=== PATIENT | male | born 1995 | race Caucasian/White ===

== ENCOUNTER 2021-10-14 20:27 | Emergency (ER) | payer OTHER, SELFPAY ==
[2021-10-14 20:33] VITALS: BP 153/98; PULSE 90; RESP 18; O2SAT 98
--- NOTE | 2021-10-14 20:58 | ED.GENADUL_ITS ---
Discharge Plan Disposition Patient Disposition: HOME Condition: Stable Discharge Details Clinical Impression: Avulsion fracture of right talus Primary Care Provider: None,None ED Provider: Gianluca Espinal Home Meds and New Rx's Prescriptions: Continued amoxicillin-pot clavulanate 875-125 mg tablet 1 tab PO BID Qty: 10 0RF Discharge Instructions Instructions: Talar Fracture in Adults (ED) Additional Instructions: X-rays concerning for a small talar fracture. Wear postop shoe and use crutches until reevaluation with orthopedics. Rest, elevate, cool compresses every 2 h ours for 20 minutes. I have placed you on the orthopedic list, please contact their office first thing Sunday to discuss your ER visit and need for outpatient reevaluation. [id number] anti-inflammatory medication such as Motrin as directed. Please watch for new or worsening symptoms and return to the ER for any concerns. Referrals: Alex Barber MD [ [facility] STAFF PHYSICIAN] - Medical Decision Making 25-year-old gentleman was skateboarding a few hours ago and twisted his right ankle. Plan is to obtain x-ray and reassess Upon reassessment patient reports pain is increasing, will provide 1 tablet p.o. Percocet now and a take-home pack. X-ray reveals a potential small talar avulsion fracture. Patient does state that he did injure his ankle previously but was never told he had a fracture. He is certainly tender in this region. Difficult to tell whether this is acute or not. We will treat as an acute fracture. Placed into a tall walking boot with crutches and teaching. Placed on the orthopedic list to help expedite outpatient follow-up Standard discharge and return precautions were provided. Patient understands, is agreeable to this plan, and has no additional questions or concerns upon discharge. This documentation was generated using [employer] system, please disregard any oddities of phrase or misspellings. Medical Records Medical records reviewed: Yes I reviewed the patient's medical records. Imaging Data Radiologic Study: Attestation: I personally reviewed and interpreted this imaging study as follows: Imaging: X-Ray Radiologist's impression: PROCEDURE INFORMATION: Exam: XR Right Ankle Exam date and time: 10/14/2021 20:58 Age: 25 years old Clinical indication: Injury or trauma; Other: Twisting injury; Sprain or strain; Ankle; Right; Injury date: 10/14/21 TECHNIQUE: Imaging protocol: Radiologic exam of the Right ankle. Views: 3 or more views. COMPARISON: No relevant prior studies available. FINDINGS: Bones/joints: The ankle mortise is intact. No acute fracture involving tibia or fibula. Soft tissues: Soft tissue swelling in the lateral ankle. Other findings: 6 mm curvilinear calcification projecting dorsal to the talar neck, relatively coarse in appearance. IMPRESSION: No displaced fracture. Potential small talar avulsion fracture, age indeterminate. Consider follow-up if this is the location of the patient's pain. HPI General Mode of arrival: ambulatory . Date/Time Provider Initiated Documentation: 10/14/21 20:39 . Limitations to Documentation: no limitations . Information obtained by: patient . History of Present Illness 25 year old M presents to the emergency department with the chief complaint of R ankle injury, described as moderate, with intensity rated at 7. Quality is described as aching, and is localized to the right and lower extremity. Patient reports no radiation. Patient started experiencing this hour(s) (3) and it has been constant. Immobilization improves symptom(s), Movement worsens symptoms . Patient notes no other symptoms.. Patient did receive the following treatm ents prior to arrival, none Related Data Home Medications Medication Instructions Recorded Confirmed amoxicillin 875 mg-potassium 1 tab PO BID #10 tabs 10/06/21 10/06/21 clavulanate 125 mg tablet Previous Rx's Medication Instructions Recorded amoxicillin 875 mg-potassium 1 tab PO BID #10 tabs 10/06/21 clavulanate 125 mg tablet Allergies Allergy/AdvReac Type Severity Reaction Status Date / Time No Known Allergies Allergy Verified 10/06/21 13:40 General Stated Complaint: Orthopedic COLETTE: 4 Review of Systems Constitutional Constitutional: Denies weakness Musculoskeletal Musculoskeletal: Reports arthralgias, Denies numbness and Denies tingling Integumentary/Breasts Skin/Breast: Denies erythema Neurologic Neurologic: Denies numbness, Denies tingling and Denies weakness PFSH All Active Problems (Updated 10/14/21 @ 21:35 by DIXIE Archuleta) Avulsion fracture of right talus (Acute) Dog bite of dorsum of hand (Acute) Bilateral wrist pain (Acute) Bilateral elbow joint pain (Acute) Social History Smoking/Tobacco Use Status: Current every day Tobacco Type: cigarettes and e- cigarettes Smoking risk assessment performed?: Yes Alcohol Intake: current Alcohol Intake frequency: 0-2 drinks per day Alcohol type: beer Drug use: Occasionally Substance use type: marijuana Details: weekly Seatbelt use: always Do you feel safe at home: Yes Do you feel safe in your relationship?: Yes Exam Const General: cooperative, healthy appearing, comfortable and no acute distress Orientation: alert and awake HENMT Head: normal to inspection, normocephalic and atraumatic Eyes General: appearance normal, both eyes and all related structures Conjunctivae: conjunctivae normal Neck Neck: normal visual inspection, trachea midline and supple Resp Effort & Inspection: normal respiratory effort and able to speak in complete sentences Cardio Rate: regular rate Rhythm: regular rhythm Skin General skin exam: no rashes or lesions noted Neuro General: patient alert, patient awake, moves all extremities and no focal motor deficits Cognition: normal cognition Speech: speech normal Gait: antalgic Motor: muscle tone normal throughout Sensory Exam: no sensory deficits noted Extrem General: capillary refill normal Other: Right ankle with full range of motion. There is diffuse iutzlae-[id number]-[id number] swelling and discomfort slightly worse along the anterior and lateral aspect. Skin is intact. Neuro, vascular, tendon intact. Normal pedal pulse and capillary refill. Psych Appearance: grossly normal Mental Status: mental status grossly normal Course Vital Signs Vital signs: Vital Signs Pulse 90 10/14/21 20:33 Respiratory Rate 18 10/14/21 20:33 Blood Pressure 153/98 H 10/14/21 20:33 Pulse Oximetry 98 10/14/21 20:33 Temperature Source Temporal Artery Scan 10/14/21 20:33 Pulse 90 10/14/21 20:33 Respiratory Rate 18 10/14/21 20:33 Respiratory Effort Non-Labored 10/14/21 20:36 Blood Pressure 153/98 H 10/14/21 20:33 Blood Pressure Position Sitting 10/14/21 20:33 Pulse Oximetry 98 10/14/21 20:33 Oxygen Delivery Method Room Air 10/14/21 20:33 Oxygen Flow Rate 0 10/14/21 20:33 Pain Level 7 10/14/21 20:33 PAWSS Have you Been Recently Intoxicated or Drunk Within the Last 30 days?: Yes Have you Ever Experienced Previous Episodes of Alcohol Withdrawal?: No Have you ever Experienced Withdrawal Seizures?: No Have you ever Experienced Delirium Tremens(DT)s?: No Have you ever undergone Alcohol Rehabilitation Treatment (i.e, inpt ot outpatient treatment programs)?: No Have you ever Experienced Blackouts?: No Have you ever Combined Alcohol with other Downers within the last 90 days?: No Have you ever Combined Alcohol with any other Substance of Abuse during the last 90 days?: No Positive Blood Alcohol level on Presentation? [PCS.BAL]: No Evidence of Increased Autonomic Activity (i.e. HR>120, tremor, sweating, agitation, nausea)?: No Result: 1
--- NOTE | 2021-10-14 20:59 | DI.RAD_ITS ---
Exam(s) XR ANKLE RT COMPLETE EXAM: XR ANKLE RT COMPLETE CLINICAL HISTORY: twist injury. TECHNIQUE: 2D digital imaging was performed. Three views. COMPARISON: No exams were available for comparison FINDINGS: BONES: No acute fracture is present. There is a calcification at the dorsal aspect of the anterior t alus which has a chronic appearance. No bony destructive lesion is seen. JOINTS: The ankle mortise is normally aligned. SOFT TISSUE: Prominent soft tissue swelling laterally. IMPRESSION: Soft tissue swelling. No acute bony abnormality or ankle mortise disruption DATA REPOSITORY: RADIATION DOSE DELIVERED:
--- NOTE | 2021-10-14 21:24 | DI.VRAD_ITS ---
PROCEDURE INFORMATION: Exam: XR Right Ankle Exam date and time: 10/14/2021 20:58 Age: 25 years old Clinical indication: Injury or trauma; Other: Twisting injury; Sprain or strain; Ankle; Right; Injury date: 10/14/21 TECHNIQUE: Imaging protocol: Radiologic exam of the Right ankle. Views: 3 or more views. COMPARISON: No relevant prior studies available. FINDINGS: Bones/joints: The ankle mortise is intact. No acute fracture involving tibia or fibula. Soft tissues: Soft tissue swelling in the lateral ankle. Other findings: 6 mm curvilinear calcification projecting dorsal to the talar neck, relatively coarse in appearance. IMPRESSION: No displaced fracture. Potential small talar avulsion fracture, age indeterminate. Consider follow-up if this is the location of the patient's pain. Dictated and Authenticated by: Lisbet Canas MD. Ordering:PERCY Hough MD
[2021-10-14] MEDS: oxyCODONE 5 mg/Acetaminophen 325 mg TAB 1 TAB PO (21:39)
== END 2021-10-14 21:52 | disposition home or self-care (01) ==
PROVIDERS: Emergency Provider Physician Assistant
DX: S92.151A Displaced avulsion fracture (chip fracture) of right talus, initial encounter for closed fracture (principal); F17.210 Nicotine dependence, cigarettes, uncomplicated; F17.290 Nicotine dependence, other tobacco product, uncomplicated; X50.1XXA Overexertion from prolonged static or awkward postures, initial encounter; Y93.51 Activity, roller skating (inline) and skateboarding
CPT/HCPCS: 99283; 73610; 99284

== ENCOUNTER 2021-10-31 08:17 | Outpatient (CLI) | payer OTHER, SELFPAY ==
--- NOTE | 2021-10-31 08:00 | DI.RAD_ITS ---
Exam(s) XR FOOT RT COMPLETE EXAM: XR FOOT RT COMPLETE CLINICAL HISTORY: R foot injury. TECHNIQUE: 2D digital imaging was performed of the right foot. Three images were obtained. AP, obl ique and lateral views were obtained. COMPARISON: CR,XR XR ANKLE RT COMPLETE from 10/14/2021 FINDINGS: BONES: No acute fracture is present. No bony destructive lesion is seen. JOINTS: No dislocation present. SOFT TISSUE: Normal. IMPRESSION: No acute fracture or dislocation. DATA REPOSITORY: RADIATION DOSE DELIVERED:
== END 2021-10-31 08:18 | disposition home or self-care (01) ==
LOC: DIORS 08:18
PROVIDERS: Visit Provider Physician Assistant
DX: S99.921A Unspecified injury of right foot, initial encounter (principal); X58.XXXA Exposure to other specified factors, initial encounter
CPT/HCPCS: 73630

== ENCOUNTER 2022-03-04 04:08 | Emergency (ER) | payer SELFPAY ==
[2022-03-04 04:10] VITALS: BP 139/102; PULSE 62; RESP 16; TEMP 36.4; O2SAT 100
--- NOTE | 2022-03-04 04:19 | ED.GENADUL_ITS ---
Discharge Plan Disposition Patient Disposition: Home Condition: Improving Discharge Details Clinical Impression: Abdominal pain, vomiting, and diarrhea Primary Care Provider: None,None ED Provider: Linsey Cotton Home Meds and New Rx's Prescriptions: New famotidine [Pepcid] 20 mg tablet 20 mg PO DAILY Qty: 14 0RF ondansetron 4 mg tablet,disintegrating 4 mg PO TID PRN (Reason: nausea and vomiting) Qty: 6 0RF Discharge Instructions Instructions: Acute Nausea and Vomiting (ED), Acute Diarrhea (ED), Abdominal Pain (ED) Additional Instructions: Your lab tests today are reassuring and show no evidence of acute concerning or significant findings. Drink plenty of fluids and get plenty of rest. Prescriptions for Zofran and Pepcid sent electronically to your pharmacy. Follow-up with your primary care doctor in 1 week. Return to the emergency department with any worsening or new concerning symptoms such as fever, persistent vomiting, worsening pain or any other concerns. Discharge Data Discharge Physician: Linsey Cotton Medical Decision Making 0415 -- 26-year-old male presents with diffuse abdominal pain, worse in the upper abdomen, vomiting and diarrhea for the past 2 hours. Patient appears somewhat uncomfortable but nontoxic. He is afebrile. His abdomen is soft and tender mainly in the epigastrium, left upper quadrant and right upper quadrant. He has no right lower quadrant tenderness, rebound tenderness, rigidity or guarding. Suspect gastroenteritis, gastritis or colitis. History and presentation does not appear consistent with appendicitis at this time. We will place an IV, bolus IV fluids, screening labs and give IV Tylenol, IV Toradol, IV Pepcid and IV Zofran in addition to GI cocktail and reassess. 0510 --labs reviewed and unremarkable. Normal white blood cell count. Normal electrolytes. Patient reassessed and he states he vomited again. He states pain is improved but still somewhat present in the upper abdomen. As his pain is improving and labs are unremarkable, do not see an indication for CT imaging. Will give Phenergan, Dilaudid, GI cocktail, Carafate and reassess. 0540 --patient reassessed and his pain and nausea is completely resolved and he is requesting to go home. We will send with Zofran and prescriptions for Zofran and Pepcid sent electronically to his pharmacy. Advised to follow up with the primary care doctor for re-evaluation. Usual and customary return precautions given prior to discharge. Medical Records Medical records reviewed: Yes I reviewed the patient's medical records. Lab Data Lab results reviewed: Yes I reviewed the patient's lab results. Labs: Laboratory Tests Range/Units 03/04/22 03/04/22 04:20 04:20 WBC (4.4-10.8) 10^3/uL 6.11 RBC (4.36-5.78) 10^6/uL 5.00 Hgb (13.5-17.5) g/dL 14.4 Hct (40.0-50.0) % 43.5 MCV (80-95) fL 87 MCH (27.0-33.0) pg 28.8 MCHC (32.0-36.0) % 33.1 RDW (11.8-14.1) % 12.6 Plt Count (130-400) 10^3/uL 219 MPV (8.0-11.0) fL 10.5 Immature Gran % 0.0 Neutrophils % 42.8 Lymphocytes % 35.0 Monocytes % 19.1 Eosinophils % 1.3 Basophils % 1.8 Nucleated RBC % (0.0-0.3) % 0.0 Absolute Neutrophils (1.2-6.7) 10^3/uL 2.61 Absolute Lymphocytes (1.2-3.4) 10^3/uL 2.14 Absolute Monocytes (0.1-0.8) 10^3/uL 1.17 H Absolute Eosinophils (0.0-0.7) 10^3/uL 0.08 Absolute Basophils (0.0-0.2) 10^3/uL 0.11 Sodium (136-145) mmol/L 145 Potassium (3.5-5.1) mmol/L 3.9 Chloride (98-107) mmol/L 107 Carbon Dioxide (21.0-32.0) mmol/L 28.1 Anion Gap (3-11) mmol/L 9.9 BUN (7-18) mg/dL 13 Creatinine (0.70-1.30) mg/dL 0.8 Est GFR (CKD-EPI 2020) (mL/min/1.73m2) 125.95 Glucose (74-106) mg/dL 96 Calcium (8.5-10.1) mg/dL 9.2 Total Bilirubin (0.2-1.0) mg/dL 0.3 AST (15-37) U/L 36 ALT (16-63) U/L 28 Alkaline Phosphatase (46-116) U/L 73 Total Protein (6.4-8.2) g/dL 7.9 Albumin (3.4-5.0) g/dL 4.1 Lipase (73-393) U/L 116 HPI General Mode of arrival: ambulatory . Date/Time Provider Initiated Documentation: 03/04/22 04:09 . Limitations to Documentation: no limitations . Information obtained by: patient . HPI Narrative: Pt is a 26yo M who presents to the ED w/ a c/o upper abdominal pain, vomiting and diarrhea for the past 2 hours. Patient states pain is constant, aching and cramping located mainly in the upper abdomen below his ribs. Patient states he awoke at 2 AM with pain, vomiting and diarrhea. He states he vomited approximately 5 times which is mainly been bile. He states he has had a few episodes of loose brown stool. He denies any new diet changes, recent antibiotics or known sick contacts. He denies any fever or urinary symptoms. Related Data Home Medications Medication Instructions Recorded Confirmed famotidine 20 mg tablet (Pepcid) 20 mg PO DAILY #14 tabs 03/04/22 ondansetron 4 mg disintegrating 4 mg PO TID PRN nausea and 03/04/22 tablet vomiting #6 tabs Previous Rx's Medication Instructions Recorded famotidine 20 mg tablet (Pepcid) 20 mg PO DAILY #14 tabs 03/04/22 ondansetron 4 mg disintegrating 4 mg PO TID PRN nausea and 03/04/22 tablet vomiting #6 tabs Allergies Allergy/AdvReac Type Severity Reaction Status Date / Time No Known Allergies Allergy Verified 10/06/21 13:40 General Stated Complaint: Abd Prob COLETTE: 3 Review of Systems All systems reviewed & are unremarkable except as noted in HPI and below Constitutional Constitutional: Reports as per HPI, Denies chills and Denies fever(s) Eyes Eyes: Denies blurry vision ENT Ears, Nose, Mouth, and Throat: Denies dizziness, Denies sore throat and Denies throat swelling Cardiovascular Cardiovascular: Denies chest pain and Denies dyspnea Respiratory Respiratory: Denies cough and Denies dyspnea Gastrointestinal Gastrointestinal: Reports abdominal pain, Reports diarrhea, Reports nausea and Reports vomiting Genitourinary Genitourinary: Denies hematuria and Denies dysuria Musculoskeletal Musculoskeletal: Denies back pain and Denies numbness Integumentary/Breasts Skin/Breast: Denies lesions and Denies rash Neurologic Neurologic: Denies dizziness, Denies localized weakness and Denies numbness Allergic/Immunologic Allergic/Immunologic: Denies throat swelling PFSH All Active Problems (Updated 03/04/22 @ 05:47 by Linsey Cotton DO) Abdominal pain, vomiting, and diarrhea (Acute) Right ankle sprain (Acute 10/14/21) Dog bite of dorsum of hand (Acute) Bilateral wrist pain (Acute) Bilateral elbow joint pain (Acute) Medical History (Updated 03/04/22 @ 05:47 by Linsey Cotton DO) No significant past medical history Surgical History (Updated 03/04/22 @ 05:15 by Linsey Cotton DO) No significant past surgical history Social History Smoking/Tobacco Use Status: Current every day Tobacco Type: cigarettes and e- cigarettes Smoking risk assessment performed?: Yes Alcohol Intake: current Alcohol Intake frequency: 0-2 drinks per day Alcohol type: beer Drug use: Occasionally Substance use type: marijuana Details: weekly Seatbelt use: always Do you feel safe at home: Yes Do you feel safe in your relationship?: Yes Exam Const General: cooperative, healthy appearing and no acute distress HENMT Head: normal to inspection Face and sinus: normal facial exam Eyes General: appearance normal, both eyes and all related structures Pupils: PERRL EOM: EOM intact bilaterally Neck Neck: normal visual inspection and No submandibular swelling Lymphatic: no lymphadenopathy noted Chest Chest: normal inspection of the chest and no tenderness Resp Effort & Inspection: normal respiratory effort and able to speak in complete sentences Auscultation: clear to auscultation bilaterally Cardio Rate: regular rate Rhythm: regular rhythm GI Inspection: normal to inspection Palpation: soft, not firm, not rigid and tender in the epigastrum, in the LUQ and in the RUQ Auscultation: normal bowel sounds and hypoactive bowel sounds Rectal Exam: visual inspection normal Skin General skin exam: no rashes or lesions noted Neuro General: patient alert, patient awake and patient oriented x3 Cognition: normal cognition Speech: speech normal Motor: muscle tone normal throughout Sensory Exam: no sensory deficits noted Extrem General: normal to inspection, full ROM, capillary refill normal, no calf tenderness bilaterally and no edema Psych Appearance: grossly normal Mental Status: mental status grossly normal Speech and Movement: speech and movement normal Affect: normal affect Course Vital Signs Vital signs: Vital Signs Temperature 97.5 F L 03/04/22 04:10 Pulse 62 03/04/22 04:10 Respiratory Rate 16 03/04/22 04:10 Blood Pressure 139/102 H 03/04/22 04:10 Pulse Oximetry 100 03/04/22 04:10 Temperature 97.5 F L 03/04/22 04:10 Temperature Source Oral 03/04/22 04:10 Pulse 62 03/04/22 04:10 Respiratory Rate 16 03/04/22 04:10 Respiratory Effort 03/04/22 04:16 Blood Pressure 139/102 H 03/04/22 04:10 Blood Pressure Position Sitting 03/04/22 04:10 Pulse Oximetry 100 03/04/22 04:10 Oxygen Delivery Method Room Air 03/04/22 04:10 Oxygen Flow Rate 0 03/04/22 04:10 Pain Level 5 03/04/22 04:10
[2022-03-04 04:28] LABS: Absolute Basophil Count 0.11 10^3/uL (0.0-0.2); Absolute Eosinophil Count 0.08 10^3/uL (0.0-0.7); Absolute Lymphocyte Count 2.14 10^3/uL (1.2-3.4); Absolute Monocyte Count 1.17 10^3/uL (0.1-0.8); Absolute Neutrophil Count 2.61 10^3/uL (1.2-6.7); Basophils % 1.8; Eosinophils % 1.3; HCT 43.5 % (40.0-50.0); HGB 14.4 g/dL (13.5-17.5); MCH 28.8 pg (27.0-33.0); MCHC 33.1 % (32.0-36.0); MCV 87 fL (80-95); MPV 10.5 fL (8.0-11.0); Monocytes % 19.1; Neutrophils % 42.8; Platelet Count 219 10^3/uL (130-400); RDW 12.6 % (11.8-14.1); RDW-SD 40.6 fL; WBC 6.11 10^3/uL (4.4-10.8)
[2022-03-04] MEDS: Ondansetron 4 MG/2 ML VIAL IVP (04:41)
[2022-03-04] MEDS: ACETAMINOPHEN 1,000 MG/100 ML BTL 400 MG IVPB (04:41)
[2022-03-04] MEDS: Ketorolac 30 MG/ML VIAL IVP (04:42)
[2022-03-04] MEDS: Normal Saline 1,000 ML 1000 ML IV (04:42)
[2022-03-04] MEDS: Famotidine 20 MG/2 ML VIAL IVP (04:42)
[2022-03-04 04:44] LABS: ALT 28 U/L (16-63); AST 36 U/L (15-37); Albumin 4.1 g/dL (3.4-5.0); Alkaline Phosphatase 73 U/L (46-116); Anion Gap 9.9 mmol/L (3-11); BUN 13 mg/dL (7-18); Bilirubin, Total 0.3 mg/dL (0.2-1.0); CO2 28.1 mmol/L (21.0-32.0); CREATININE 0.8 mg/dL (0.70-1.30); Calcium 9.2 mg/dL (8.5-10.1); Chloride 107 mmol/L (98-107); Estimated GFR 125.95 (mL/min/1.73m2); Glucose 96 mg/dL (74-106); Lipase 116 U/L (73-393); Potassium 3.9 mmol/L (3.5-5.1); Sodium 145 mmol/L (136-145); Total Protein 7.9 g/dL (6.4-8.2)
[2022-03-04] MEDS: HYDROmorphone 2 MG/ML SYR 1 MG IVP (05:22)
[2022-03-04] MEDS: Sucralfate 1 GM TAB PO (05:24)
[2022-03-04] MEDS: Ondansetron O.D.T. 4 MG TABEF, 3 TABS/BTL PO (05:50)
[2022-03-04 05:59] VITALS: BP 110/62; PULSE 88; RESP 18; TEMP 37; O2SAT 97
[2022-03-04] MEDS: Mylanta Suspension 30 ML CUP (05:59)
== END 2022-03-04 05:58 | disposition home or self-care (01) ==
PROVIDERS: Emergency Provider Physician Assistant
DX: R10.84 Generalized abdominal pain (principal); R11.10 Vomiting, unspecified; R19.7 Diarrhea, unspecified; R10.816 Epigastric abdominal tenderness; R10.811 Right upper quadrant abdominal tenderness; R10.812 Left upper quadrant abdominal tenderness
CPT/HCPCS: 36415; 80053; 83690; 96361; 96374; 96375; 99284; 85025; J0131; J1170; J1885; J2405

== ENCOUNTER 2022-03-12 09:12 | Emergency (ER) | payer SELFPAY ==
[2022-03-12 09:19] VITALS: BP 128/93; PULSE 109; RESP 17; TEMP 36.7; O2SAT 100
--- NOTE | 2022-03-12 09:54 | ED.GENADUL_ITS ---
Discharge Plan Disposition Patient Disposition: Home Condition: Good Discharge Details Clinical Impression: Abdominal pain, vomiting, and diarrhea Primary Care Provider: None,None ED Provider: Marii Crabtree Home Meds and New Rx's Prescriptions: New sucralfate [Carafate] 1 gram tablet 1 g PO QACHS 14 Days Qty: 56 0RF ondansetron 4 mg tablet,disintegrating 4 mg PO Q6H PRN (Reason: nausea and vomiting) Qty: 14 0RF Continued ondansetron 4 mg tablet,disintegrating 4 mg PO TID PRN (Reason: nausea and vomiting) Qty: 6 0RF Discontinued famotidine [Pepcid] 20 mg tablet 20 mg PO DAILY Qty: 14 0RF Discharge Instructions Instructions: Abdominal Pain (ED) Additional Instructions: Your labs and imaging are reassuring here today. You did have some evidence of inflammation. As we discussed, I am concerned that this may be associated with your long-term marijuana use and encourage that you please encourage hydration. you may use Tylenol to help with discomfort. You may use zofran as prescribed if you have any recurrence of your nausea or vomiting. You may apply a thin layer of the capsaicin cream 3-4 times daily to help with discomfort. As some of your symptoms do sound to be associated with possible acid reflux, may try the Carafate as prescribed. I will hold on the Pepcid and try the Carafate. Please continue to monitor your symptoms and track food or triggers that make this better or worse. I have referred you to local primary care, you should hear from our care management team to schedule ointment. If you develop fever/chills, increased pain, inability stay hydrated or other new/worsening symptom please seek care urgently once again. Discharge Data Discharge Date/Time-TO BE ENTERED AT DEPARTURE: 03/12/22 12:41 Medical Decision Making Patient is a pleasant 26-year-old gentleman presenting today for continued abdominal pain. He was seen here on 03/04/2022. At that time, there was concern for gastritis and patient was started on Pepcid. He has been taking this as prescribed. He was also sent home with Zofran which patient has used up. He states that the pain continues to come in waves and be severe primarily in the epigastric region but also radiating out from here. Symptoms have been slightly inconsistent and have waxed/waned. He denies any bright red blood or melena. No change in urinary habits. Denies any pain in his back. Denies any chest pain or shortness of breath. States the pain is worse when laying flat. Relieved with hot showers. Patient does note that he smokes weed daily and has done so for many years. On exam, patient appears nontoxic. He is slightly tachycardic. Patient does feel that he has been dehydrated as his nausea and vomiting has been fairly significant. States that he vomited twice yesterday. Is actively nauseated has not vomited all today. Lungs are clear, normal cardiac exam. Abdominal exam is concerning for epigastric as well as some more mild right upper and left upper quadrant pain. He denies significant alcohol intake. Do not have any alcohol last night. No pain in the lower abdomen. No CVA tenderness. You With the patient's report that his pain improves with hot showers, and he uses marijuana daily for several years, really concern for cannabinoid induced hyperemesis. However, as this is more of a diagnosis of exclusion I do feel that with his severity of pain and chronicity of pain that CT of the abdomen would be appropriate to rule out more emergent pathology. Also considered gastritis as his pain is maximal in the epigastric region and is worse when he is laying flat. Will treat with IV acetaminophen, Toradol, Mylanta. We will also give Zofran to help with the nausea and apply a thin layer of Capsaicin to the abdomen. Discussed this plan with the patient who is in agreement. Had lengthy discussion with patient about his marijuana usage. Labs reviewed. No significant abnormality. He is feeling improved. CT reviewed by radiologist: FINDINGS: Lungs: Lung bases are clear. Heart: Imaged heart is normal. Liver: Normal. No mass. Gallbladder and bile ducts: Normal. No calcified stones. No ductal dilation. Pancreas: Normal. No ductal dilation. Spleen: Normal. No splenomegaly. Adrenal glands: Normal. No mass. Kidneys and ureters: Normal. No hydronephrosis. Stomach and bowel: No obstruction. No mucosal thickening. The colon is largely decompressed, though there may be some mild low-attenuation wall thickening of the transverse and descending colon. There is fluid within the cecum. No pericolonic inflammatory stranding. Appendix: Normal appendix. Intraperitoneal space: No free air. No significant fluid collection. Vasculature: No abdominal aortic aneurysm. Lymph nodes: No enlarged lymph nodes. Mild, somewhat shotty appearance of the mesenteric lymph nodes. Urinary bladder: Unremarkable as visualized. Reproductive: Unremarkable as visualized. Bones/joints: No acute fracture. Soft tissues: Unremarkable. IMPRESSION: 1. Normal appendix. 2. Mild findings that can be associated with infectious/inflammatory enterocolitis, including mild somewhat diffuse low-attenuation wall thickening of the colon and mildly prominent mesenteric lymph nodes. Discussed with patient. Again, he is feeling significantly improved. He is not having significant diarrhea, nor has he had fevers or known exposures. Advised that he should continue with supportive cdare. Encouarged close f/u with PCP. Discussed symptomatic management. Encouraged hydration. Encouraged cessation of marijuana usage. As he reports he uses marijuana for anxiety, encouraged that he discuss his anxiety with PCP as well. Return precautions were discussed. All of his questions an erickson bruno were addressed, he is in agreement with this plan. HPI General Date/Time Provider Initiated Documentation: 03/12/22 09:26 . Limitations to Documentation: no limitations . Information obtained by: patient, RN notes reviewed and old records reviewed . History of Present Illness 26 year old M presents to the emergency department with the chief complaint of abdominal pain, nausea and vomiting, described as moderate, with intensity rated at 4. Quality is described as burning and aching, and is localized to the abdomen. Patient reports no radiation (radiates around abdomen). Patient started experiencing this week(s) and it has been intermittent. No relieving factors improve symptom(s), Eating worsens symptoms (also comes on not when eating) . Patient notes loss of appetite, malaise and nausea/vomiting; denies chest pain, cough, fever/chills, headaches, rash and shortness of breath. Patient did receive the following treatments prior to arrival, other (pepcid) Related Data Home Medications Medication Instructions Recorded Confirmed ondansetron 4 mg disintegrating 4 mg PO TID PRN nausea and 03/04/22 03/12/22 tablet vomiting #6 tabs ondansetron 4 mg disintegrating 4 mg PO Q6H PRN nausea and 03/12/22 tablet vomiting #14 tabs sucralfate 1 gram tablet (Carafate) 1 g PO QACHS 2 weeks #56 tabs 03/12/22 Previous Rx's Medication Instructions Recorded ondansetron 4 mg disintegrating 4 mg PO TID PRN nausea and 03/04/22 tablet vomiting #6 tabs ondansetron 4 mg disintegrating 4 mg PO Q6H PRN nausea and 03/12/22 tablet vomiting #14 tabs sucralfate 1 gram tablet (Carafate) 1 g PO QACHS 2 weeks #56 tabs 03/12/22 Allergies Allergy/AdvReac Type Severity Reaction Status Date / Time No Known Allergies Allergy Verified 03/12/22 12:09 General Stated Complaint: Abd Prob COLETTE: 3 Review of Systems Constitutional Constitutional: Reports as per HPI, Denies chills, Denies fever(s) and Denies headache(s) ENT Ears, Nose, Mouth, and Throat: Denies headache(s) Cardiovascular Cardiovascular: Reports as per HPI, Denies chest pain and Denies dyspnea Respiratory Respiratory: Reports as per HPI, Denies cough and Denies dyspnea Gastrointestinal Gastrointestinal: Reports as per HPI Genitourinary Genitourinary: Denies system reviewed and no additional complaints, except as documented (patient denies any change in urinary habits) Musculoskeletal Musculoskeletal: Reports as per HPI and Denies back pain Integumentary/Breasts Skin/Breast: Reports as per HPI and Denies rash Neurologic Neurologic: Reports as per HPI and Denies headache(s) PFSH All Active Problems (Updated 03/12/22 @ 12:28 by DIXIE Culp) Abdominal pain, vomiting, and diarrhea (Acute) Right ankle sprain (Acute 10/14/21) Dog bite of dorsum of hand (Acute) Bilateral wrist pain (Acute) Bilateral elbow joint pain (Acute) Medical History (Updated 03/12/22 @ 12:28 by DIXIE Culp) No significant past medical history Surgical History (Updated 03/04/22 @ 05:15 by Linsey Cotton DO) No significant past surgical history Social History Smoking/Tobacco Use Status: Current every day Tobacco Type: cigarettes and e- cigarettes Smoking risk assessment performed?: Yes Alcohol Intake: current Alcohol Intake frequency: 0-2 drinks per day Alcohol type: beer Drug use: Occasionally Substance use type: marijuana Details: weekly Seatbelt use: always Do you feel safe at home: Yes Do you feel safe in your relationship?: Yes Exam Const General: cooperative, healthy appearing, comfortable, no acute distress, well developed and anxious Nutritional Appearance: average body habitus and well nourished Orientation: alert and awake [facility] Head: normal to inspection Mouth: mucous membranes dry Resp Effort & Inspection: normal respiratory effort, able to speak in complete s entences and no respiratory distress Auscultation: clear to auscultation bilaterally, no rales, no rhonchi and no wheezes Cardio Rate: regular rate Rhythm: regular rhythm Heart Sounds: S1 normal and S2 normal GI Inspection: normal to inspection Palpation: soft, no hepatosplenomegaly, not firm, no guarding, no masses, not rigid and tender in the epigastrum and in the RUQ; not at McBurney's point, Marte's sign negative and with no rebound tenderness Percussion: normal to percussion Auscultation: normal bowel sounds Back/Spine/Pelvis Back: no CVA tenderness Skin General skin exam: no rashes or lesions noted Trauma: no lacerations or abrasions Neuro General: patient alert and patient awake Cognition: normal cognition Speech: speech normal Gait: normal gait Psych Appearance: grossly normal and well kempt Mental Status: mental status grossly normal Speech and Movement: speech and movement normal Course Vital Signs Vital signs: Vital Signs Temperature 36.7 C 03/12/22 09:19 Pulse 109 H 03/12/22 09:19 Respiratory Rate 17 03/12/22 09:19 Blood Pressure 128/93 H 03/12/22 09:19 Pulse Oximetry 100 03/12/22 09:19 Temperature 36.7 C 03/12/22 09:19 Temperature Source Temporal Artery Scan 03/12/22 09:19 Pulse 109 H 03/12/22 09:19 Respiratory Rate 17 03/12/22 09:19 Blood Pressure 128/93 H 03/12/22 09:19 Blood Pressure Position Sitting 03/12/22 09:19 Pulse Oximetry 100 03/12/22 09:19 Oxygen Delivery Method Room Air 03/12/22 09:19 Oxygen Flow Rate 0 03/12/22 09:19 Pain Level 4 03/12/22 09:19
--- NOTE | 2022-03-12 10:14 | DI.CT_ITS ---
Exam(s) CT ABDOMEN PELVIS W EXAM: CT ABDOMEN PELVIS W CLINICAL HISTORY: epigastric and RUQ/LUQ pain. TECHNIQUE: Imaging Protocol: Axial computed tomography images with coronal and sagittal reformatted images were created and reviewed CONTRAST MATERIAL: Intravenous: Omnipaque 350 Contrast volume:100 ml Oral: / no COMPARISON: No exams were available for comparison FINDINGS: ABDOMEN: Lung Bases: Normal where visualized. Liver: Normal density. No measurable mass. Gallbladder and biliary tract: No radiodense calculus or dilation. Pancreas: Normal density, no abnormal calcifications or inflammatory process. Spleen: Normal. Kidneys: Normal size, contour and axis. Duplex collecting system of left kidney. No radiodense ston es or obstructive uropathy. No masses seen. Adrenal glands: No masses seen. Abdominal Aorta: Abdominal portion non-dilated. PELVIS: Bladder: No gross wall thickening. No calculi.No focal mass. Bowel: Colon mainly decompressed. Questionable wall thickening. No small bowel or gastric dilatatio n. No obstruction. Appendix normal. Peritoneal cavity: No ascites, collection or mesenteric inflammatory response. Bones: Within normal limits for age. Reproductive organs: Within normal limits. Lymph nodes: Multiple old tiny mesenteric lymph nodes, likely reactive. Impression: Question of mild colitis versus under distension. RADIATION DOSE DELIVERED: 719.65mGy.cm Total DLP DATA REPOSITORY: All CT scans at this facility are submitted to the National Radiology Data Registry (NRDR) Dose Index Registry (DIR) with the [employer] ([employer]). RADIATION OPTIMIZATION: All CT scans at this facility use at least one of these dose optimization te chniques: automated exposure control; mA and/or kV adjustment per patient size (includes targeted exa ms where dose is matched to clinical indication); or iterative reconstruction.
[2022-03-12 10:32] LABS: Abs Immature Grans 0.04 10^3/uL (0.0-0.06); Absolute Basophil Count 0.09 10^3/uL (0.0-0.2); Absolute Eosinophil Count 0.05 10^3/uL (0.0-0.7); Absolute Lymphocyte Count 2.41 10^3/uL (1.2-3.4); Absolute Monocyte Count 0.89 10^3/uL (0.1-0.8); Absolute Neutrophil Count 5.58 10^3/uL (1.2-6.7); Eosinophils % 0.6; Immature Grans % 0.4; Lymphocytes % 26.6; MCH 28.5 pg (27.0-33.0); MCHC 32.6 % (32.0-36.0); MCV 87 fL (80-95); MPV 9.9 fL (8.0-11.0); Monocytes % 9.8; Neutrophils % 61.6; Platelet Count 327 10^3/uL (130-400); RBC 5.27 10^6/uL (4.36-5.78); RDW 12.4 % (11.8-14.1); RDW-SD 39.8 fL; WBC 9.06 10^3/uL (4.4-10.8)
[2022-03-12 11:04] LABS: ALT 23 U/L (16-63); AST 25 U/L (15-37); Albumin 4.2 g/dL (3.4-5.0); Alkaline Phosphatase 73 U/L (46-116); BUN 9 mg/dL (7-18); Bilirubin, Total 0.4 mg/dL (0.2-1.0); CREATININE 0.9 mg/dL (0.70-1.30); Calcium 9.2 mg/dL (8.5-10.1); Chloride 102 mmol/L (98-107); Estimated GFR 121.55 (mL/min/1.73m2); Glucose 97 mg/dL (74-106); Lipase 90 U/L (73-393); Magnesium 1.9 mg/dL (1.8-2.4); Potassium 3.9 mmol/L (3.5-5.1); Sodium 138 mmol/L (136-145); Total Protein 7.7 g/dL (6.4-8.2)
[2022-03-12] MEDS: ACETAMINOPHEN 1,000 MG/100 ML BTL 400 MG IVPB (11:08)
[2022-03-12 11:10] LABS: Bilirubin Negative (Negative); Blood Negative (Negative); Clarity Clear (Clear); Glucose Negative (Negative); Ketones Negative (Negative); Leukocyte Esterase Negative (Negative); Nitrite Negative (Negative); Specific Gravity 1.015 (1.005-1.025); Urobilinogen 0.2 EU/dL (Up TO 0.2)
[2022-03-12] MEDS: Mylanta Suspension 30 ML CUP 20 ML PO (11:14)
[2022-03-12] MEDS: Ketorolac 15 MG/ML VIAL IVP (11:14)
[2022-03-12] MEDS: Normal Saline 1,000 ML 1000 ML IV (11:14)
[2022-03-12] MEDS: Pantoprazole 40 MG VIAL IVP (11:14)
[2022-03-12] MEDS: Ondansetron 4 MG/2 ML VIAL IVP (11:15)
[2022-03-12] MEDS: Omnipaque 350 MG/ML 100 ML BTL IJ (11:29)
[2022-03-12] MEDS: Normal Saline - Diluent 50 ML VIAL IJ (11:29)
[2022-03-12] MEDS: Normal Saline Flush 10 ML SYR IVP (11:30)
--- NOTE | 2022-03-12 11:58 | DI.VRAD_ITS ---
PROCEDURE INFORMATION: Exam: CT Abdomen And Pelvis With Contrast Exam date and time: 03/12/2022 11:28 AM Age: 26 years old Clinical indication: Other: Ruq/luq pain TECHNIQUE: Imaging protocol: Computed tomography of the abdomen and pelvis with contrast. Radiation optimization: All CT scans at this facility use at least one of these dose optimization techniques: automated exposure control; mA and/or kV adjustment per patient size (includes targeted exams where dose is matched to clinical indication); or iterative reconstruction. Contrast material: OMNIPAQUE 350; Contrast volume: 100 ml; Contrast route: INTRAVENOUS (IV); COMPARISON: No relevant prior studies available. FINDINGS: Lungs: Lung bases are clear. Heart: Imaged heart is normal. Liver: Normal. No mass. Gallbladder and bile ducts: Normal. No calcified stones. No ductal dilation. Pancreas: Normal. No ductal dilation. Spleen: Normal. No splenomegaly. Adrenal glands: Normal. No mass. Kidneys and ureters: Normal. No hydronephrosis. Stomach and bowel: No obstruction. No mucosal thickening. The colon is largely decompressed, though there may be some mild low-attenuation wall thickening of the transverse and descending colon. There is fluid within the cecum. No pericolonic inflammatory stranding. Appendix: Normal appendix. Intraperitoneal space: No free air. No significant fluid collection. Vasculature: No abdominal aortic aneurysm. Lymph nodes: No enlarged lymph nodes. Mild, somewhat shotty appearance of the mesenteric lymph nodes. Urinary bladder: Unremarkable as visualized. Reproductive: Unremarkable as visualized. Bones/joints: No acute fracture. Soft tissues: Unremarkable. IMPRESSION: 1. Normal appendix. 2. Mild findings that can be associated with infectious/inflammatory enterocolitis, including mild somewhat diffuse low-attenuation wall thickening of the colon and mildly prominent mesenteric lymph nodes. Dictated and Authenticated by: Gin Alonzo MD. Ordering:ADEN Colvin MD
--- NOTE | 2022-03-12 14:15 | NUR.NOTE ---
Nursing Note: Referral given to Care Management for recurrent abd pain, establish care/ in 1 to 2 weeks.
== END 2022-03-12 12:41 | disposition home or self-care (01) ==
PROVIDERS: Emergency Provider Physician Assistant
DX: R10.9 Unspecified abdominal pain (principal); R11.10 Vomiting, unspecified; R19.7 Diarrhea, unspecified; R00.0 Tachycardia, unspecified
CPT/HCPCS: 80053; 83690; 96361; 96374; 96375; 99285; 74177; 81003; 83735; 85025; 99284; J0131; J1885; J2405; J3490